=== PATIENT | female | born 1955 | race Two or more races ===

== ENCOUNTER 2016-06-08 08:31 | Emergency (ER) | payer OTHER ==
[2016-06-08 08:43] VITALS: RESP 18
--- NOTE | 2016-06-08 08:54 | CPEKG ---
Heart Rate: 75 RR Interval: 800 P-R Interval: 160 QRSD Interval: 88 QT Interval: 412 QTC Interval: 461 P [place]: 35 QRS [place]: -23 T Wave [place]: -5 EKG Severity - BORDERLINE ECG - EKG Impression: SINUS RHYTHM Electronically Signed By: Navjot Ramos 08-Jun-2016 14:01:59
--- NOTE | 2016-06-08 08:59 | EDPHY ---
H & P Stated Complaint: cold x 5 days, CP rad to back, SOB, OLIVARES Time Seen by Provider: 06/08/16 08:59 HPI/ROS: CHIEF COMPLAINT: Chest pain, cough, dizziness HISTORY OF PRESENT ILLNESS: The patient presents to the ED for evaluation of chest pain and dizziness. Over the past several days the patient has had a flu- like illness with myalgias, cough and subjective fever. The patient did have some improvement of her symptoms over the past 24 hours. The patient was driving to work today when she developed sensations of palpitations, left anterior chest pain and worsening shortness of breath. The patient has had some pleuritic chest pain which she attributes secondary to her severe cough. The patient denies significant past medical history. She denies asymmetric calf pain or swelling. She has no history or risk factors for PE/DVT. REVIEW OF SYSTEMS: A comprehensive 10 point review of systems is otherwise negative aside from elements mentioned in the history of present illness. Source: Patient Exam Limitations: No limitations - Personal History Current Tetanus Diphtheria and Acellular Pertussis (TDAP): Yes - Medical/Surgical History Hx Asthma: No Hx Chronic Respiratory Disease: No Hx Diabetes: No Hx Cardiac Disease: No Hx Renal Disease: No Hx Cirrhosis: No Hx Alcoholism: No Hx HIV/AIDS: No Hx Splenectomy or Spleen Trauma: No Other PMH: tubal ligation. denies medical hx - Social History Smoking Status: Never smoked - Physical Exam Exam: General Appearance: Alert, no distress Eyes: Pupils equal and round no pallor or injection ENT, Mouth: Mucous membranes moist Respiratory: There are no retractions, lungs are clear to auscultation Cardiovascular: Regular rate and rhythm Gastrointestinal: Abdomen is soft and nontender, no masses, bowel sounds normal Neurological: A&O, normal motor function, normal sensory exam, normal cranial nerves Skin: Warm and dry, no rashes Musculoskeletal: Neck is supple nontender Extremities: symmetrical, full range of motion Constitutional: Initial Vital Signs Temperature (C) 36.7 C 06/08/16 08:40 Heart Rate 81 06/08/16 08:40 Respiratory Rate 18 06/08/16 08:40 Blood Pressure 136/92 H 06/08/16 08:40 O2 Sat (%) 97 06/08/16 08:40 O2 Delivery Mode Room Air Allergies/Adverse Reactions: amoxicillin Allergy (Verified 06/08/16 08:39) Penicillins Allergy (Verified 06/08/16 08:39) Sulfa (Sulfonamide Antibiotics) Allergy (Verified 06/08/16 08:39) Home Medications: Medication Instructions Recorded Triamizine 06/08/16 Medical Decision Making - Diagnostics EKG Interpretation: EKG: Complete interpretation has been separately recorded in the [facility] archive. Summary impression: Sinus rhythm, no ischemic changes noted Imaging: Chest x-ray PA lateral: Images reviewed by myself, negative for pneumonia or acute disease. ED Course/Re-evaluation: The patient presents to the ED for evaluation of several days of cough and upper respiratory infection. Today the patient developed palpitations and shortness of breath while driving to work. Patient presents to the ED for further evaluation. Upon arrival the patient is noted to have stable vital signs. The patient was not hypoxemic. Given her history of cough, a chest x- ray was obtained which demonstrates no evidence of pneumonia. The patient did have a D-dimer checked which was negative and I feel adequately excludes pulmonary embolism in this low risk by Wells criteria patient. The patient was noted to be mildly hypokalemic likely secondary to decreased oral intake this week. The patient was observed in the emergency department on a whistle punk for several hours without evidence of arrhythmia or ectopy. The patient did receive potassium replacement. Patient was re-evaluated at 10:35 a.m. and is feeling much better. I do feel that she can be discharged home with a diagnosis of viral upper respiratory infection, dehydration and mild hypokalemia. I have asked the patient to follow up with her primary care provider for a recheck of her potassium in the next week. Differential Diagnosis: Differential diagnosis considered includes viral syndrome, pneumonia, pulmonary embolism, pericarditis, myocarditis, myocardial infarction - Data Points Laboratory Results: Laboratory Results 06/08/16 09:00 06/08/16 09:00 06/08/16 06/08/16 06/08/16 09:00 09:00 09:00 WBC 4.20 10^3/uL 10^3/uL (3.80-9.50) RBC 5.19 10^6/uL 10^6/uL (4.18-5.33) Hgb 16.0 g/dL g/dL (12.6-16.3) Hct 45.4 % % (38.0-47.0) MCV 87.5 fL fL (81.5-99.8) MCH 30.8 pg pg (27.9-34.1) MCHC 35.2 g/dL g/dL (32.4-36.7) RDW 12.6 % % (11.5-15.2) Plt Count 229 10^3/uL 10^3/uL (150-400) MPV 10.2 fL fL (8.7-11.7) Neut % (Auto) 71.4 % % (39.3-74.2) Lymph % (Auto) 18.6 % % (15.0-45.0) [place] % (Auto) 8.8 % % (4.5-13.0) Eos % (Auto) 0.5 % L % (0.6-7.6) Baso % (Auto) 0.5 % % (0.3-1.7) Nucleat RBC Rel Count 0.0 % % (0.0-0.2) Absolute Neuts (auto) 3.00 10^3/uL 10^3/uL (1.70-6.50) Absolute Lymphs (auto) 0.78 10^3/uL L 10^3/uL (1.00-3.00) Absolute Monos (auto) 0.37 10^3/uL 10^3/uL (0.30-0.80) Absolute Eos (auto) 0.02 10^3/uL L 10^3/uL (0.03-0.40) Absolute Basos (auto) 0.02 10^3/uL 10^3/uL (0.02-0.10) Absolute Nucleated RBC 0.00 10^3/uL 10^3/uL (0-0.01) Immature Gran % 0.2 % % (0.0-1.1) Immature Gran # 0.01 10^3/uL 10^3/uL (0.00-0.10) D-Dimer 0.40 ug/mLFEU ug/mLFEU (0.00-0.50) Sodium 138 mEq/L mEq/L (134-144) Potassium 2.8 mEq/L L mEq/L (3.5-5.2) Chloride 97 mEq/L mEq/L (97-110) Carbon Dioxide 29 mEq/l mEq/l (22-31) Anion Gap 12 mEq/L mEq/L (8-16) BUN 13 mg/dL mg/dL (7-23) Creatinine 0.8 mg/dL mg/dL (0.6-1.0) Estimated GFR > 60 Glucose 96 mg/dL mg/dL (70-100) Calcium 9.4 mg/dL mg/dL (8.5-10.4) Troponin I < 0.012 ng/mL ng/mL (0-0.034) Medications Given: Discontinued Medications Sodium Chloride (Ns) 1,000 mls @ 0 mls/hr IV ONCE ONE PRN Reason: Wide Open Stop: 06/08/16 09:09 Last Admin: 06/08/16 09:14 Dose: 1,000 mls Potassium Chloride (Klor-Con) 40 meq PO EDNOW ONE Stop: 06/08/16 09:39 Last Admin: 06/08/16 09:57 Dose: 40 meq Departure - Departure Disposition: Home, Routine, Self-Care Clinical Impression: Chest pain, Viral upper respiratory infection, Hypokalemia Condition: Good Instructions: Viral Syndrome (ED) Additional Instructions: 1. Please increase your fluid intake as you may have symptoms of mild dehydration. 2. Please increase your potassium intake specifically with fruits and vegetables as your potassium level was slightly low today. I would like you to have your primary care provider recheck this level in the next week. 3. Please return to the emergency department for any worsening symptoms or other concerns. The testing today demonstrates no evidence of a heart attack, blood clot, pneumonia or other life-threatening abnormality. 4. Take Ibuprofen or Motrin 600 mg by mouth three times a day. 5. Please return to the ED for markedly worsening symptoms or other concerns. Referrals: JOANNA BRICENO [Other] - As per Instructions
[2016-06-08] MEDS ORDERED: NS 1,000 ML IV ONE (09:08)
[2016-06-08 09:15] LABS: % IMMATURE GRANULYOCYTES 0.2 % (0.0-1.1); ABSOLUTE IMMATURE GRANULOCYTES 0.01 10^3/uL (0.00-0.10); ADD DIFF? NO; ADD MORPH? NO; ADD SCAN? NO; ATYPICAL LYMPHOCYTE FLAG 10 (0-99); FRAGMENT RBC FLAG 0 (0-99); HEMATOCRIT 45.4 % (38.0-47.0); LEFT SHIFT FLG 0 (0-99); LIPEMIA HEMOLYSIS FLAG 90 (0-99); MEAN CELL HEMOGLOBIN 30.8 pg (27.9-34.1); MEAN CELL HEMOGLOBIN CONCENTR. 35.2 g/dL (32.4-36.7); MEAN CELL VOLUME 87.5 fL (81.5-99.8); MEAN PLATELET VOLUME 10.2 fL (8.7-11.7); PLATELET CLUMPS FLAG 10 (0-99); PLATELET COUNT 229 10^3/uL (150-400); RED BLOOD CELL COUNT 5.19 10^6/uL (4.18-5.33); RED CELL DISTRIBUTION WIDTH 12.6 % (11.5-15.2)
[2016-06-08 09:27] LABS: ANION GAP 12 mEq/L (8-16); CALCIUM 9.4 mg/dL (8.5-10.4); CARBON DIOXIDE 29 mEq/l (22-31); CHLORIDE 97 mEq/L (97-110); CREATININE 0.8 mg/dL (0.6-1.0); GLOMERULAR FILTRATION RATE > 60; GLUCOSE 96 mg/dL (70-100); POTASSIUM 2.8 mEq/L (3.5-5.2); SODIUM 138 mEq/L (134-144)
[2016-06-08] MEDS ORDERED: POTASSIUM CL 20 MEQ TAB PO ONE (09:38)
[2016-06-08 09:39] LABS: TROPONIN I < 0.012 ng/mL (0-0.034)
[2016-06-08 10:21] VITALS: O2SAT 95
[2016-06-08 11:01] VITALS: BP 115/77; PULSE 70; TEMP 97.9
== END 2016-06-08 11:01 | disposition home or self-care (01) ==
DX: R07.9 Chest pain, unspecified (principal); J06.9 Acute upper respiratory infection, unspecified; E87.6 Hypokalemia